=== PATIENT | female | born 1990 | race Caucasian/White ===

== ENCOUNTER 2016-09-25 03:18 | Emergency (ER) | payer OTHER ==
[~2016-09-25 03:18] MED LIST: ANSAID100 MG PO; BACTRIM DS TABL1 TA1 PO; BACTRIM DS TABL1 TA2 PO; BENADRYL ALLERG25 MG PO; CLEOCIN PO; FLAGYL PO; FLOXIN OTIC5 M1 OT; IBUPROFEN PO; IRON1 TAB PO; NAPROXEN PO; NO MEDICATIONS; PEPCID PO; PERCOCET 5-3251 TAB PO; PRENATAL VITAMI1 TA5 PO; PRENATAL1 TA1; PRENATAL1 TA1 PO; ULTRAM PO; VIBRAMYCIN100 M1
[2017-01-08] MEDS ORDERED: BACTRIM DS TAB1 EACH PO (12:11)
[2017-01-19] MEDS ORDERED: UNKNOWN ANTIBIOTIC (16:12)
== END 2016-09-25 04:38 | disposition home or self-care (01) ==
LOC: SED 03:18
DX: L02.31 Cutaneous abscess of buttock (principal); F17.200 Nicotine dependence, unspecified, uncomplicated
CPT/HCPCS: 10060; 87070; 87077; 87186; 87205; 99283

== ENCOUNTER 2016-11-28 17:48 | Emergency (ER) | payer OTHER ==
[~2016-11-28] VITALS: Ht 157.5 cm; Wt 53.1 kg
[2016-11-28] MEDS ORDERED: NO MEDICATIONS (17:59)
[2017-01-08] MEDS ORDERED: BACTRIM DS TAB1 EACH PO (12:11)
[2017-01-19] MEDS ORDERED: UNKNOWN ANTIBIOTIC (16:12)
== END 2016-11-28 18:51 | disposition home or self-care (01) ==
LOC: SED 17:48
DX: N60.82 Other benign mammary dysplasias of left breast (principal); F17.210 Nicotine dependence, cigarettes, uncomplicated; Z86.14 Personal history of Methicillin resistant Staphylococcus aureus infection; Z98.51 Tubal ligation status
CPT/HCPCS: 99283

== ENCOUNTER 2016-12-21 04:38 | Emergency (ER) | payer OTHER ==
[~2016-12-21] VITALS: Ht 157.5 cm; Wt 68.0 kg
--- NOTE | ~2016-12-21 | EKG ---
PATIENT: EMETERIO SHUKLA UNIT #: [id number] Ventricular Rate: 99 BPM Atrial Rate: 99 BPM P-R Interval: 142 ms QRS Duration: 88 ms Q-T Interval: 346 ms QTC Calculation(Bezet): 444 ms P [place]: 58 degrees Calculated R [place]: 53 degrees Calculated T [place]: 55 degrees Diagnosis Line: Normal sinus rhythm Diagnosis Line: Normal ECG Diagnosis Line: Diagnosis Line: Confirmed by SURY MOFFETT MD ([id number]) on Diagnosis Line: 12/22/2016 4:57:41 PM INTERPRETING MD: JASON
[2016-12-21 06:25] LABS: BASOPHIL# 0.1 X10e3 (0-0.3); BASOPHIL% 0.5 % (0-2.5); EOSINOPHIL# 0.8 X10e3 (0-0.7); EOSINOPHIL% 5.3 % (0.0-7.0); HEMATOCRIT 43.1 % (35.0-45.0); HEMOGLOBIN 14.5 gm/dL (12.0-16.0); LYMPHOCYTE# 2.6 X10e3 (1.0-3.5); LYMPHOCYTE% 18.2 % (17.0-45.0); MEAN CORPUSCULAR HEMOGLOBIN 28.9 PG (28-34); MEAN CORPUSCULAR HGB CONC 33.6 g/dL (30-36); MEAN PLATELET VOLUME 9.5 FL (6.5-11.5); MONOCYTE# 0.8 X10e3 (0-1.0); MONOCYTE% 5.5 % (3.0-12.0); NEUTROPHIL# 10.1 X10e3 (1.5-7.1); NEUTROPHIL% 70.5 % (40-75); PLATELET COUNT 246 X10e3 (140-420); RED BLOOD COUNT 5.02 X10e (3.90-5.30); RED CELL DISTRIBUTION WIDTH 13.7 % (11.0-15.5); WHITE BLOOD COUNT 14.3 X10e3 (4.0-10.5)
[2016-12-21 06:36] LABS: DIFF IND NO
[2016-12-21 06:44] LABS: PARTIAL THROMBOPLASTIN TIME 27.1 SECONDS (23.5-31.3); PROTHROMBIN TIME (PATIENT) 10.4 SECONDS (10.0-11.7)
[2016-12-21 06:52] LABS: ALBUMIN SERUM 4.7 g/dL (3.5-5.0); BILIRUBIN, DIRECT 0.1 mg/dL (0.0-0.2); BILIRUBIN,INDIRECT 0.3 mg/dL (0.0-0.9); BILIRUBIN,TOTAL 0.4 mg/dL (0.2-2.0); BUN/CREATININE RATIO 11.66; CALCIUM SERUM 9.4 mg/dL (8.4-10.2); CREATININE SERUM 0.6 mg/dL (0.6-1.4); GLOM FILT RATE Estimated 127.6 mL/min (>60); POTASSIUM 3.4 mmol/L (3.5-5.1); PROTEIN TOTAL SERUM 7.9 g/dL (6.0-8.3)
[2017-01-08] MEDS ORDERED: BACTRIM DS TAB1 EACH PO (12:11)
[2017-01-19] MEDS ORDERED: UNKNOWN ANTIBIOTIC (16:12)
== END 2016-12-21 09:15 | disposition short-term general hospital (02) ==
LOC: CED 04:38
PROVIDERS: Nurse Practitioner Family
DX: N93.0 Postcoital and contact bleeding (principal); F17.210 Nicotine dependence, cigarettes, uncomplicated
CPT/HCPCS: 36415; 80048; 80076; 84703; 85025; 85610; 85730; 86850; 86900; 86901; 93005; 96361; 96374; 99291; J2270; J2405; J3010

== ENCOUNTER 2016-12-23 09:53 | Emergency (ER) | payer OTHER ==
[~2016-12-23] VITALS: Ht 157.5 cm; Wt 68.0 kg
[2016-12-23 11:15] LABS: BASOPHIL# 0.1 X10e3 (0-0.3); BASOPHIL% 0.9 % (0-2.5); DIFF IND NO; EOSINOPHIL# 0.5 X10e3 (0-0.7); EOSINOPHIL% 6.8 % (0.0-7.0); HEMATOCRIT 28.5 % (35.0-45.0); HEMOGLOBIN 9.9 gm/dL (12.0-16.0); LYMPHOCYTE# 1.7 X10e3 (1.0-3.5); LYMPHOCYTE% 22.7 % (17.0-45.0); MEAN CELL VOLUME 87.2 FL (83-96); MEAN CORPUSCULAR HEMOGLOBIN 30.3 PG (28-34); MEAN CORPUSCULAR HGB CONC 34.8 g/dL (30-36); MEAN PLATELET VOLUME 9.2 FL (6.5-11.5); MONOCYTE# 0.4 X10e3 (0-1.0); MONOCYTE% 5.6 % (3.0-12.0); NEUTROPHIL# 4.7 X10e3 (1.5-7.1); PLATELET COUNT 154 X10e3 (140-420); RED BLOOD COUNT 3.26 X10e (3.90-5.30); RED CELL DISTRIBUTION WIDTH 13.8 % (11.0-15.5); WHITE BLOOD COUNT 7.4 X10e3 (4.0-10.5)
[2016-12-23 11:27] LABS: URINE SOURCE CLEAN CATCH
[2016-12-23 11:32] LABS: URINE APPEARANCE CLEAR; URINE BILIRUBIN NEG (NEG); URINE BLOOD 3+ (NEG); URINE COLOR YELLOW; URINE GLUCOSE NEG (NEG); URINE KETONE NEG (NEG); URINE LEUKOCYTE ESTERASE TRACE (NEG); URINE NITRATE NEG (NEG); URINE PH 6.5 (5-8); URINE PROTEIN NEG (NEG); URINE SPECIFIC GRAVITY 1.009 (1.003-1.035); URINE UROBILINOGEN 0.2 MG/DL (NEG)
[2016-12-23 11:34] LABS: CULTURE INDICATED? YES; URBCS1 AUWI 100-200 /[HPF] (0-2); URINE BACTERIA AUWI NEG (NEGATIVE); URINE SQUAMOUS EPITHELIAL CELL NONE SEEN /[HPF]
[2016-12-23 11:43] LABS: ALBUMIN SERUM 3.3 g/dL (3.5-5.0); ALKALINE PHOSPHATASE 66 U/L (32-92); ALT (SGPT) 15 U/L (10-40); AST (SGOT) 19 U/L (10-42); BILIRUBIN, DIRECT 0.1 mg/dL (0.0-0.2); BILIRUBIN,INDIRECT 0.4 mg/dL (0.0-0.9); BILIRUBIN,TOTAL 0.5 mg/dL (0.2-2.0); CALCIUM SERUM 8.3 mg/dL (8.4-10.2); CARBON DIOXIDE 25 mmol/L (22-31); CHLORIDE 109 mmol/L (100-111); CREATININE SERUM 0.5 mg/dL (0.6-1.4); GLOM FILT RATE Estimated 135.5 mL/min (>60); GLUCOSE FASTING 84 mg/dL (70-110); LIPASE 19 U/L (22-51); POTASSIUM 3.8 mmol/L (3.5-5.1); PROTEIN TOTAL SERUM 5.9 g/dL (6.0-8.3); SODIUM 141 mmol/L (135-145)
[2016-12-23 11:44] LABS: BLOOD UREA NITROGEN <5 mg/dL (9-23)
[2017-01-08] MEDS ORDERED: BACTRIM DS TAB1 EACH PO (12:11)
[2017-01-19] MEDS ORDERED: UNKNOWN ANTIBIOTIC (16:12)
== END 2016-12-23 14:15 | disposition short-term general hospital (02) ==
LOC: CFTX 09:53 → CED 09:53 → CFTX 10:33 → CED 10:33 → CFTX 14:15
PROVIDERS: Nurse Practitioner Family
DX: N99.820 Postprocedural hemorrhage of a genitourinary system organ or structure following a genitourinary system procedure (principal); F17.210 Nicotine dependence, cigarettes, uncomplicated
CPT/HCPCS: 36415; 80048; 80076; 81003; 83690; 84703; 85025; 87086; 87088; 87186; 96361; 96374; 96375; 96376; 99284; J2270; J2405

== ENCOUNTER 2016-12-26 21:01 | Emergency (ER) | payer OTHER ==
[~2016-12-26] VITALS: Ht 157.5 cm; Wt 68.0 kg
[2017-01-08] MEDS ORDERED: BACTRIM DS TAB1 EACH PO (12:11)
[2017-01-19] MEDS ORDERED: UNKNOWN ANTIBIOTIC (16:12)
== END 2016-12-26 22:00 | disposition home or self-care (01) ==
LOC: SED 21:01 → CED 21:37 → SED 21:37
DX: K60.0 Acute anal fissure (principal); F17.210 Nicotine dependence, cigarettes, uncomplicated; Z98.51 Tubal ligation status
CPT/HCPCS: 99283

== ENCOUNTER 2016-12-27 15:16 | Emergency (ER) | payer OTHER ==
[~2016-12-27] VITALS: Ht 157.5 cm; Wt 52.2 kg
--- NOTE | ~2016-12-27 | CR2 ---
[facility] A Service of [facility] RADIOLOGY TEXT RESULTS PATIENT: EMETERIO SHUKLA LOCATION: [facility] : [birth year] UNIT #: [id number] AGE: [address]: Louis Fuller MD SEX: F ORDER DR: [id number] [address] [address] [id number] MR#: [id number] Acc #: [id number] NAME: EMETERIO SHUKLA : 1990 SEX: F STUDY DATE/TIME: 12/27/2016 16:32 UNIT: [facility] ROOM: STUDY DESCRIPTION: CR Abdomen Acute Series Attending Physician: Louis Fuller M.D. Ordering Physician: Louis Fuller M.D. Primary Care Physician: Dalton Beaver M.D. MEDICAL IMAGING REPORT This report is preliminary unless electronic signature is present EXAM Acute abdominal series 12/27/2016 INDICATION 26-year-old female with abdominal pain and constipation for 4 days, recent abdominal surgery. TECHNIQUE Frontal chest and upright and supine views of the abdomen were performed. COMPARISON None. FINDINGS Cardiac silhouette is within normal limits. The vascularity is normal. Lungs are clear. No pneumothorax. Upright view demonstrates no free air. Moderate stool burden throughout the colon most characteristic of constipation. Gaseous distension of small bowel present as well. Findings suggest a diffuse postoperative ileus. IMPRESSION 1. Negative frontal chest. 2. No free air. 3. Bowel gas pattern suggestive of a diffuse postoperative ileus with moderate stool burden throughout the colon. Dictated by... Bang Cheney M.D. [facility] A Service of [facility] RADIOLOGY TEXT RESULTS PATIENT: EMETERIO SHUKLA LOCATION: [facility] : [birth year] UNIT #: [id number] AGE: [address]: Louis Fuller MD SEX: F ORDER DR: THIS IS AN ELECTRONICALLY VERIFIED REPORT Bang Cheney M.D. at 12/28/2016 11:24 PM CATHY/carmen TD: 12/28/2016 07:24 JOB #: [id number] MEDICAL IMAGING REPORT Page 1 of 1 COPY
[2016-12-27 17:44] LABS: BASOPHIL% 0.7 % (0-2.5); EOSINOPHIL# 0.5 X10e3 (0-0.7); EOSINOPHIL% 6.9 % (0.0-7.0); HEMATOCRIT 31.7 % (35.0-45.0); HEMOGLOBIN 10.9 gm/dL (12.0-16.0); LYMPHOCYTE# 1.7 X10e3 (1.0-3.5); LYMPHOCYTE% 23.3 % (17.0-45.0); MEAN CELL VOLUME 86.8 FL (83-96); MEAN CORPUSCULAR HEMOGLOBIN 29.9 PG (28-34); MEAN CORPUSCULAR HGB CONC 34.4 g/dL (30-36); MEAN PLATELET VOLUME 8.2 FL (6.5-11.5); MONOCYTE# 0.4 X10e3 (0-1.0); MONOCYTE% 5.7 % (3.0-12.0); NEUTROPHIL# 4.6 X10e3 (1.5-7.1); NEUTROPHIL% 63.4 % (40-75); PLATELET COUNT 255 X10e3 (140-420); RED BLOOD COUNT 3.65 X10e (3.90-5.30); WHITE BLOOD COUNT 7.2 X10e3 (4.0-10.5)
[2016-12-27 17:45] LABS: DIFF IND NO
[2016-12-27 18:09] LABS: ALBUMIN SERUM 3.5 g/dL (3.5-5.0); ALKALINE PHOSPHATASE 82 U/L (32-92); ALT (SGPT) 12 U/L (10-40); AST (SGOT) 14 U/L (10-42); BILIRUBIN, DIRECT <0.1 mg/dL (0.0-0.2); BILIRUBIN,INDIRECT 0.3 mg/dL (0.0-0.9); BILIRUBIN,TOTAL 0.4 mg/dL (0.2-2.0); BLOOD UREA NITROGEN <5 mg/dL (9-23); BUN/CREATININE RATIO 8.33; CALCIUM SERUM 8.4 mg/dL (8.4-10.2); CARBON DIOXIDE 26 mmol/L (22-31); CHLORIDE 109 mmol/L (100-111); CREATININE SERUM 0.6 mg/dL (0.6-1.4); GLOM FILT RATE Estimated 127.6 mL/min (>60); GLUCOSE FASTING 59 mg/dL (70-110); POTASSIUM 3.6 mmol/L (3.5-5.1); PROTEIN TOTAL SERUM 6.4 g/dL (6.0-8.3); SODIUM 141 mmol/L (135-145)
[2017-01-08] MEDS ORDERED: BACTRIM DS TAB1 EACH PO (12:11)
[2017-01-19] MEDS ORDERED: UNKNOWN ANTIBIOTIC (16:12)
== END 2016-12-27 20:53 | disposition short-term general hospital (02) ==
LOC: CED 15:16
PROVIDERS: Emergency Medicine
DX: K56.41 Fecal impaction (principal); Z98.51 Tubal ligation status
CPT/HCPCS: 36415; 74022; 80048; 80076; 82947; 85025; 96360; 99284